=== PATIENT | female | born 2000 | race Caucasian/White ===

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

== ENCOUNTER → 2018-02-27 | Outpatient (CLI) | payer OTHER ==
[2018-02-28 14:17] LABS: INSULIN LEVEL 28.4 uIU/mL (2.6-24.9)
== END ==
LOC: M LAB 08:17
DX: E66.9 Obesity, unspecified (principal)
CPT/HCPCS: 83525

== ENCOUNTER 2018-10-27 11:08 | Emergency (ER) | payer OTHER ==
[~2018-10-27] VITALS: Ht 160 cm; Wt 95.0 kg
[2018-10-27 11:08] VITALS: BP 115/57
--- NOTE | 2018-10-27 12:14 | REP ---
Right knee series: Five views. History: Trauma. Findings: By views of the right knee show mild medial soft tissue swelling on the sunrise view. Bones, joints and soft tissues are unremarkable. Impression: No fracture seen. Electronically Signed by Ventura Dutton MD 10/27/2018 12:05 P
[2018-10-27] MEDS ORDERED: IBUP-1022 PO (13:13)
== END 2018-10-27 13:30 | disposition home or self-care (01) ==
LOC: M ED 11:08
DX: S83.91XA Sprain of unspecified site of right knee, initial encounter (principal); W19.XXXA Unspecified fall, initial encounter; Y92.410 Unspecified street and highway as the place of occurrence of the external cause; Y93.9 Activity, unspecified; Y99.9 Unspecified external cause status; Z72.0 Tobacco use

== ENCOUNTER → 2018-11-26 | Outpatient (CLI) | payer OTHER ==
[~2018-11-26] MED LIST: IBUP-1022 PO
--- NOTE | 2018-11-26 19:50 | REP ---
MRI RIGHT KNEE: TECHNIQUE: Axial proton density fat saturation, sagittal proton density T2 STIR, water excitation, coronal proton density, proton density fat saturation. There is no evidence of a meniscal tear. There is diffuse increased signal on T2 weighted images involving the anterior cruciate ligament consistent with a partial tear. Posterior cruciate ligaments and collateral ligaments are intact. Extensor mechanism is intact. There is bone bruising of the medial femoral condyle predominately anteriorly. The overlying cartilage of the anterior aspect of the medial femoral condyle demonstrates an area of thinning and heterogenous increased signal. This is consistent with osteochondral injury. Mild bone bruising is seen anteriorly in the lateral tibial plateau. There is a small joint effusion. There is a Martinez's cyst in the medial popliteal fossa having maximum cranial caudal dimension of 6.1 cm, AP 2.1 cm and transverse 2.8 cm. IMPRESSION: No meniscal tear. There appears to be a partial tear of the anterior cruciate ligament. Collateral ligaments are intact. Osteochondral injury of the anterior medial femoral condyle with focal area of cartilaginous thinning and abnormal signal, with an underlying bone bruise. There is a mild bone bruise of the anterior lateral tibial plateau. Small joint effusion. Bakers cyst. Electronically Signed by Jorge Escoto MD 11/26/2018 07:54 P
== END ==
LOC: M RAD 17:27
PROVIDERS: ATTEND Physician Assistant Medical
DX: M23.311 Other meniscus derangements, anterior horn of medial meniscus, right knee (principal)

== ENCOUNTER → 2019-07-22 | Outpatient (REF) | payer OTHER ==
[2019-07-22 18:11] LABS: BASO % 0.1 % (0.0-1.0); EOS # 1.2 10^3/uL (0.0-0.5); EOS % 10.6 % (0.0-3.0); HEMATOCRIT 43.1 % (36.0-47.0); HEMOGLOBIN 13.8 g/dl (12.0-15.5); LYMPH % 26.9 % (24.0-44.0); MEAN CORPUSCULAR HEMOGLOBIN 27.2 pg (27.0-33.0); MONO % 8.7 % (0.0-5.0); NEUTROPHILS # 5.9 10^3/uL (1.5-8.5); NEUTROPHILS % 53.2 % (36.0-66.0); PLATELET COUNT, AUTOMATED 542 10^3/uL (150-450); RED BLOOD COUNT 5.07 10^6/uL (4.00-5.40); WHITE BLOOD COUNT 11.1 10^3/uL (4.0-10.0)
[2019-07-22 18:39] LABS: ALBUMIN 3.9 GM/DL (3.2-5.2); ALT/SGPT 19 U/L (12-78); BILIRUBIN,TOTAL 0.3 MG/DL (0.2-1.0); BLOOD UREA NITROGEN 10 MG/DL (7-18); CALCIUM LEVEL 9.4 MG/DL (8.5-10.1); CARBON DIOXIDE LEVEL 30 MEQ/L (21-32); CHLORIDE LEVEL 104 MEQ/L (98-107); CREATININE FOR GFR 0.95 MG/DL (0.55-1.30); FERRITIN 16 NG/ML (8-252); GLUCOSE, FASTING 72 MG/DL (70-100); IRON (FE) 41 UG/DL (50-170); PERCENT SATURATION 10.7 % (13.2-45.0); POTASSIUM SERUM 4.2 MEQ/L (3.5-5.1); SODIUM LEVEL 139 MEQ/L (136-145); TOTAL IRON BINDING CAPACITY 382 UG/DL (250-450); TOTAL PROTEIN 7.5 GM/DL (6.4-8.2)
[2019-07-25 00:08] LABS: H PYLORI SERUM QUANT IGM <9.0 units (0.0-8.9); H PYLORI SERUM QUANT IgG ABY 1.44 (0.00-0.79)
== END ==
LOC: M SFHCPLAZ 15:49
PROVIDERS: ATTEND Physician Assistant Medical
DX: R10.13 Epigastric pain (principal)
CPT/HCPCS: 36415; 80053; 81025; 82728; 83550; 85025; 86677; G0463

== ENCOUNTER → 2019-07-28 | Outpatient (CLI) | payer OTHER ==
--- NOTE | 2019-07-28 08:19 | REP ---
Clinical: Right upper quadrant abdominal pain. Technique: Real time head scale ultrasound examination using curved array transducer. Findings: Liver and visualized pancreas are normal in appearance and echotexture without focal pancreatic or hepatic lesion identified. Gallbladder demonstrates multiple gallstones without wall thickening or pericholecystic fluid. No biliary ductal dilatation is appreciated and the common bile duct measures 5.0 mm diameter. Right kidney is normal in reniform shape without hydronephrosis and measures 9.4 x 5.4 x 4.7 cm. No ascites. Impression: Cholelithiasis. Electronically Signed by Jesse Mcmahan MD 07/28/2019 08:12 A
== END ==
LOC: M RAD 06:20
PROVIDERS: ATTEND Physician Assistant Medical
DX: R10.11 Right upper quadrant pain (principal)

== ENCOUNTER 2019-08-31 10:07 | Day surgery (SDC) | payer OTHER ==
[~2019-08-31] VITALS: Ht 160 cm; Wt 82.1 kg
[~2019-08-31 10:07] MED LIST changes: +FAMO1TAB25 PO; +FAMO40TA3 PO; +LARI1TAB PO; +LEVO250T12 PO; +LIDOCAINE 1% MDV 20ML VIAL SQ PRN; +LR 1,000 ML IV ONE; +ceFAZolin SOD 1 GM in D5W MINI-BAG PLUS 50 ML IV ONE
[2019-08-31] MEDS ORDERED: MIDAZOLAM INJ 2 MG/2 ML VIAL (J2250) As Ordered ONE (10:59)
[2019-08-31] MEDS ORDERED: ONDANSETRON 4MG/2ML VIAL (J2405) As Ordered ONE (10:59)
[2019-08-31] MEDS ORDERED: fentaNYL 100 MCG/2 ML INJECTION (J3010) As Ordered ONE ×3 (10:59→13:48)
[2019-08-31] MEDS ORDERED: dexameTHASONE 4 MG/ML 1ML VIAL (J1100) As Ordered ONE (10:59)
[2019-08-31] MEDS ORDERED: PROPOFOL 200 MG/20 ML VIAL As Ordered ONE (11:00)
[2019-08-31] MEDS ORDERED: LIDOCAINE 2% INJ 100 MG/5 ML SDV (FOR ANES.) As Ordered ONE (11:00)
[2019-08-31] MEDS ORDERED: ROCURONIUM BROMIDE 50 MG/5 ML VIAL As Ordered ONE ×2 (11:00→11:35)
[2019-08-31] MEDS ORDERED: BUPIVACAINE/EPIN 0.25% 30 ML VIAL As Ordered ONE (11:59)
[2019-08-31] MEDS ORDERED: PHENYLephrine HCL 500 MCG/5 ML (100MCG/ML) SYRINGE (J2370) As Ordered ONE (12:42)
[2019-08-31] MEDS ORDERED: SUGAMMADEX SODIUM 500 MG/5 ML VIAL (BRIDION) As Ordered ONE (13:04)
[2019-08-31] MEDS ORDERED: KETOROLAC 60 MG/2 ML VIAL (J1885) As Ordered ONE (13:05)
[2019-08-31] MEDS ORDERED: ePHEDrine SULFATE 25 MG/5 ML(5MG/ML) SYRINGE As Ordered ONE (13:25)
--- NOTE | 2019-08-31 13:39 | RO ---
DATE OF PROCEDURE: 08/31/2019 PREOPERATIVE DIAGNOSIS: Symptomatic gallstones. POSTOPERATIVE DIAGNOSIS: Symptomatic gallstones. PROCEDURE: Laparoscopic cholecystectomy. SURGEON: Ishaan Mann MD DATA ENTRY SUPERVISOR: ANESTHESIA: General endotracheal anesthesia. ESTIMATED BLOOD LOSS: Minimal. FLUIDS: Crystalloid. BRIEF PROCEDURE SUMMARY: The patient was brought to the operating room and was given general anesthesia. After adequate anesthesia and preoperative antibiotics were given, the patient was prepped and draped in the usual sterile fashion. Next, a supraumbilical incision was made with skin knife. Blunt dissection was carried down to fascia. Fascia was entered with Veress needle insufflated to 15 mm pressure. A dilating 10 mm trocar was placed at this time and under direct visualization an epigastric and two trocars were placed. The gallbladder was retracted superiorly. There were numerous adhesions up against gallbladder, which were taken down with hook cautery, and then gallbladder was grasped, retracted superiorly and the neck of the gallbladder cleared of peritoneum using the hook cautery both on the lateral side, then on the medial side where the cystic duct node could be appreciated and the cystic artery was well visualized. This was followed up onto the gallbladder itself and then dissected back down to just below the level of the backside of the wall of the gallbladder. Once this was visualized, then a window was created behind the neck of the gallbladder and a bigger window was created, and then the cystic artery was clipped proximally and distally and transected. Then, the cystic duct was clipped proximally and distally and transected after viewing the critical view of safety. The gallbladder was retracted and taken from the gallbladder bed using electrocautery. It was placed in Endo Catch bag brought out through the umbilicus and the right upper quadrant was copiously irrigated until clear. All trocars were closed with #4-0 Vicryl after the umbilicus was closed with #0 Vicryl in the fascial layer. Steri-Strips and a dry sterile dressing was applied. The patient was awakened, extubated, brought to recovery room awake, alert and hemodynamically stable. Sponge and needle counts correct times two.
[2019-08-31] MEDS ORDERED: ONDANSETRON 4MG/2ML VIAL (J2405) IV PRN ×2 (13:45→14:00)
[2019-08-31] MEDS ORDERED: LR 1,000 ML IV SCH ×2 (13:45→14:00)
[2019-08-31] MEDS ORDERED: NORCO, ANEXSIA 5/325MG TABLET (HYDROcodone/ACETAMINOPHEN) PO PRN (13:45)
[2019-08-31] MEDS ORDERED: PERCOCET 5MG/325MG TAB As Ordered ONE (13:48)
[2019-08-31] MEDS: fentaNYL 100 MCG/2 ML INJECTION (J3010) IV PRN ×4 (13:50→14:05)
[2019-08-31] MEDS: PERCOCET 5MG/325MG TAB PO PRN ×2 (13:50→14:30)
[2019-08-31] MEDS ORDERED: METOCLOPRAMIDE INJ 10MG/2ML VIAL (J2765) IV PRN (14:00)
[2019-08-31] MEDS ORDERED: KETOROLAC 30 MG/ML VIAL (J1885) IV PRN (14:00)
[2019-08-31 17:25] VITALS: BP 116/59
== END 2019-08-31 17:25 | disposition home or self-care (01) ==
LOC: M SDC 10:07
PROVIDERS: ATTEND Surgery
DX: K80.10 Calculus of gallbladder with chronic cholecystitis without obstruction (principal); F32.9 Major depressive disorder, single episode, unspecified; K21.9 Gastro-esophageal reflux disease without esophagitis; R06.83 Snoring; F17.210 Nicotine dependence, cigarettes, uncomplicated; Z79.3 Long term (current) use of hormonal contraceptives
CPT/HCPCS: 47562; 81025; 88304; J0690; J1100; J1885; J2250; J2370; J2405; J3010

== ENCOUNTER → 2019-12-10 | Outpatient (REF) | payer OTHER, SELFPAY ==
[~2019-12-10] MED LIST changes: -LIDOCAINE 1% MDV 20ML VIAL SQ PRN; -LR 1,000 ML IV ONE; -ceFAZolin SOD 1 GM in D5W MINI-BAG PLUS 50 ML IV ONE
== END ==
LOC: EEVIPCON 18:12 → M LAB REF 18:12
PROVIDERS: ATTEND Physician Assistant
DX: L02.511 Cutaneous abscess of right hand (principal)

== ENCOUNTER 2020-11-05 17:33 | Emergency (ER) | payer MEDICAID, SELFPAY ==
[~2020-11-05] VITALS: Ht 160 cm; Wt 87.5 kg
[2020-11-05] MEDS ORDERED: OMEP40CA97 PO (17:51)
[2020-11-05] MEDS ORDERED: BOOSTRIX/ADACEL VACCINE (DIPHTH/PERTUSS/ACELL/TETANUS) 0.5ML SYR IM ONE (18:15)
--- NOTE | 2020-11-05 19:23 | REP ---
INDICATION: bit by dog/index finger dec rom COMPARISON: None. TECHNIQUE: Four views left hand. FINDINGS: There is no evidence of acute fracture, dislocation, or intrinsic bone disease.No radiopaque foreign body is seen. IMPRESSION: No fracture or dislocation. No radiopaque foreign body is seen. <Electronically signed by Jorge Escoto > 11/05/20 [id number]
[2020-11-05] MEDS ORDERED: AUGM875T28 PO (19:28)
[2020-11-05] MEDS ORDERED: AUGMENTIN 875 MG TAB PO ONE (19:30)
[2020-11-05] MEDS ORDERED: NEOSPORIN OINT 0.9 GM PKT TOP ONE (19:45)
[2020-11-05 19:52] VITALS: BP 102/62
== END 2020-11-05 19:53 | disposition home or self-care (01) ==
LOC: M ED 17:33
DX: O9A.212 Injury, poisoning and certain other consequences of external causes complicating pregnancy, second trimester (principal); S61.452A Open bite of left hand, initial encounter; W54.0XXA Bitten by dog, initial encounter; Y92.019 Unspecified place in single-family (private) house as the place of occurrence of the external cause; Y93.9 Activity, unspecified; Y99.9 Unspecified external cause status

== ENCOUNTER → 2020-11-17 | Outpatient (CLI) | payer MEDICAID ==
[~2020-11-17] MED LIST changes: +AUGM875T28 PO; +OMEP40CA97 PO
== END ==
LOC: M WHC 13:39
PROVIDERS: ATTEND Obstetrics & Gynecology
DX: Z34.92 Encounter for supervision of normal pregnancy, unspecified, second trimester (principal); Z3A.22 22 weeks gestation of pregnancy; Z53.9 Procedure and treatment not carried out, unspecified reason

== ENCOUNTER → 2020-11-23 | Outpatient (CLI) | payer MEDICAID ==
--- NOTE | 2020-11-23 17:08 | REP ---
INDICATION: ANATOMY. COMPARISON: None. TECHNIQUE: Real-time sonographic evaluation of the gravid uterus performed. FINDINGS: Estimated gestational age is22 weeks 6 days, EDC 03/23/2021. Presentation: Cephalic Placenta anterior, grade 0, without evidence of placenta previa. heart rate is recorded at 155 beats per minute. Amniotic fluid is subjectively normal. Closed cervical length is measured at 3.8 cm. Biometry chart: BPD: 56 mm, 23 weeks 0 days, 51st percentile. HC: 206 mm, 22 weeks days, 44th percentile AC: 183 mm, 23 weeks 1 days, 54th percentile Femur length: 40 mm, 22 weeks 6 days, 49th percentile HC to AC ratio: 1.13, normal range 1.04-1.23. Estimated weight: 551g, 51st percentile. anatomy: Cranium: Grossly normal Lateral Ventricles/Choroid Plexus: Grossly normal Posterior Fossa/Cerebellum: Grossly normal Nose/lips/profile: Grossly normal Four chamber heart: Grossly normal Right ventricular outflow tract: Grossly normal Left ventricular outflow tract: Grossly normal Left-sided stomach: Grossly normal Kidneys: Grossly normal Bladder: Grossly normal Cord Insertion: Grossly normal 3 vessel cord: Grossly normal Spine: Grossly normal IMPRESSION: Viable single intrauterine gestation as above. <Electronically signed by Jorge Escoto > 11/23/20 [id number]
== END ==
LOC: M WHC 14:03
PROVIDERS: ATTEND Obstetrics & Gynecology
DX: Z3A.22 22 weeks gestation of pregnancy (principal)

== ENCOUNTER → 2021-01-10 | Outpatient (REF) | payer MEDICAID ==
[2021-01-10 15:32] LABS: GLUCOSE CHALLENGE TEST 1 HOUR 122 MG/DL (LESS THAN 140); HEMATOCRIT 41.1 % (36.0-47.0); HEMOGLOBIN 13.9 g/dl (12.0-15.5); MEAN CORPUSCULAR HEMOGLOBIN 30.6 pg (27.0-33.0); MEAN CORPUSCULAR HGB CONC 33.8 g/dl (32.0-36.5); MEAN CORPUSCULAR VOLUME 90.5 fl (80.0-96.0); PLATELET COUNT, AUTOMATED 408 10^3/uL (150-450); RED BLOOD COUNT 4.54 10^6/uL (4.00-5.40); WHITE BLOOD COUNT 16.5 10^3/uL (4.0-10.0)
[2021-01-10 16:26] LABS: HEPATITIS C VIRUS ABY INDEX < 0.0 INDEX (<0.8)
[2021-01-10 16:27] LABS: HIV 1&2 SCREEN CENTAUR NEGATIVE (NEGATIVE)
[2021-01-10 17:12] LABS: CHLAMYDIA DNA AMPLIFICATION NEGATIVE (NEGATIVE); GC DNA AMPLIFICATION NEGATIVE (NEGATIVE)
== END ==
LOC: M PLALAB 11:17
PROVIDERS: ATTEND Obstetrics & Gynecology
DX: Z34.90 Encounter for supervision of normal pregnancy, unspecified, unspecified trimester (principal); Z3A.00 Weeks of gestation of pregnancy not specified

== ENCOUNTER → 2021-01-27 | Outpatient (REF) | payer MEDICAID, OTHER | LOC: M SFHCWAGY 12:50 | PROVIDERS: ATTEND Advanced Practice Midwife | DX: O99.333 Smoking (tobacco) complicating pregnancy, third trimester (principal); Z3A.00 Weeks of gestation of pregnancy not specified; F17.200 Nicotine dependence, unspecified, uncomplicated ==

== ENCOUNTER → 2021-02-20 | Outpatient (REF) | payer MEDICAID, OTHER | LOC: M SFHCWAGY 14:45 | PROVIDERS: ATTEND Advanced Practice Midwife | DX: Z34.03 Encounter for supervision of normal first pregnancy, third trimester (principal); Z3A.00 Weeks of gestation of pregnancy not specified ==

== ENCOUNTER 2021-03-04 08:20 | Inpatient (IN) | payer OTHER, MEDICAID ==
[2021-03-04] VITALS (32 sets, daily range): BP systolic 81–129; BP diastolic 47–77
[~2021-03-04] VITALS: Ht 160 cm; Wt 95.1 kg
[2021-03-04] MEDS ORDERED: PRENTAB9 PO (08:56)
[2021-03-04] MEDS ORDERED: BUTORPHANOL 2 MG/ML INJ (J0595) IV ONE (10:20)
[2021-03-04] MEDS ORDERED: PROMETHAZINE INJ 25 MG/ML VIAL (J2550) IV PRN ×2 (10:20→11:25)
[2021-03-04] MEDS ORDERED: LR 1,000 ML IV SCH ×2 (10:20→17:25)
[2021-03-04 10:42] LABS: HEMATOCRIT 38.6 % (36.0-47.0); HEMOGLOBIN 13.5 g/dl (12.0-15.5); MEAN CORPUSCULAR HEMOGLOBIN 30.4 pg (27.0-33.0); MEAN CORPUSCULAR VOLUME 86.9 fl (80.0-96.0); PLATELET COUNT, AUTOMATED 351 10^3/uL (150-450); RED BLOOD COUNT 4.44 10^6/uL (4.00-5.40); WHITE BLOOD COUNT 20.7 10^3/uL (4.0-10.0)
--- NOTE | 2021-03-04 11:52 | HPEPDOC ---
Obstetrical History & Physical General Date of Admission Mar 04, 2021 at 10:17 History of Present Illness 20-year-old 1 at 37 weeks 3 days estimated gestational age presents with complaints of fluid. She also complaints of decreased movement and contractions. course is remarkable for transferred here at 22 weeks. Appointments have been appropriate since. 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 BREAST: . ABDOMEN: Gravid and non-tender to touch. FETUS: Is vertex (VTX) by sterile vaginal examination (SVE), fetus is vertex (VTX) by James. HEART RATE: Regular rate and rhythm. LUNGS: Clear to auscultation (CTA). Vital Signs/I&O Vital Signs Date Time Temp Pulse Resp B/P (MAP) Pulse Ox O2 Delivery O2 Flow Rate FiO2 03/04/21 11:32 16 03/04/21 10:11 68 114/63 (80) 03/04/21 08:38 97.3 Laboratory Data 24H LABS Laboratory Tests 2 03/04/21 10:23: Nucleated Red Blood Cells % (auto) 0.0 03/04/21 10:26: Serology Scanned Report Hepatitis B Testing CBC/BMP Laboratory Tests 03/04/21 10:23 Pertinent Laboratoy Data Blood Type: O+ RBC Antibody Screen: Negative HIV: Negative Hepatitis B: Negative Hepatitis C: Negative Rapid Plasma Reagin: Nonreactive Rubella: Immune Chlamydia/Gonorrhea: Negative Group B Streptococcus: Negative Anatomy Ultrasound Placenta Location: Anterior Normal Anatomy: Yes Placenta Previa: No Vaginal Examination Dilation: 2cm (SSE: postive pooling, ferning and nitrzine) Effacement: 50% Station: -3 Cervical Consistency: Medium Cervical Position: Middle Presentation: Cephalic presentation Assessment Variability: Moderate Accelerations: Positive Tocometer Contractions: Yes Assessment/Plan Assessment 18-year-old 1 at 7 and 3 with spontaneous rupture of membranes 3 AM this morning Reassuring status Plan Admit 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 Diet: Regular. Group B Streptococcus (GBS) negative. Labs and intravenous (IV) per unit protocol. Counseled on Pitocin and induction of labor (IOL). Anticipate normal spontaneous delivery (). C-S as appropriate. JAYLAN MOISE MD. Mar 04, 2021 11:52
[2021-03-04] MEDS ORDERED: EPIDURAL/PCA KEYS XX PRN (14:00)
[2021-03-04] MEDS ORDERED: EPIDURAL COMMENT XX SCH (14:00)
[2021-03-04] MEDS ORDERED: FENTANYL/ROPIVACAINE/NACL BAG 100 ML EPIDURAL SCH (14:00)
[2021-03-04] MEDS ORDERED: REFRIGERATOR IV KEYS XX PRN (14:00)
[2021-03-04] MEDS ORDERED: ONDANSETRON 4MG/2ML VIAL IV PRN ×2 (14:00→17:25)
[2021-03-04] MEDS ORDERED: diphenhydrAMINE 50MG/ML VIAL (J1200) IV PRN (14:00)
[2021-03-04] MEDS ORDERED: NALOXONE INJ 0.4MG/1ML VIAL (J2310 PER 1MG) IV PRN (14:00)
[2021-03-04] MEDS ORDERED: LACTATED RINGER'S 1000 ML IV PRN (14:00)
[2021-03-04] MEDS ORDERED: FENTANYL 2MCG/ML ROPIVACAINE 0.2% IN 0.9% NACL 100ML IVBAG As Ordered ONE (14:04)
[2021-03-04] MEDS: ePHEDrine SULFATE 25 MG/5 ML(5MG/ML) SYRINGE IV PRN ×4 (15:00→16:22)
[2021-03-04] MEDS ORDERED: MOM 30ML SUSPENSION UDC PO PRN ×2 (17:25→21:30)
[2021-03-04] MEDS ORDERED: PERCOCET 5MG/325MG TAB PO PRN ×2 (17:25)
[2021-03-04] MEDS ORDERED: KETOROLAC 30 MG/ML 1ML VIAL IV SCH (17:25)
[2021-03-04] MEDS ORDERED: SIMETHICONE 80MG CHEW TAB PO PRN (17:25)
[2021-03-04] MEDS ORDERED: MEASLES,MUMPS,RUBELLA VACCINE INJ (MMR-II) (90707) SC SCH ×2 (17:25→21:30)
[2021-03-04] MEDS ORDERED: RHOGAM 300 MCG (1500 IU) INJ (J2790) IM SCH ×2 (17:25→21:30)
[2021-03-04] MEDS ORDERED: OXYTOCIN DRIP 30 UNITS in IV 1 EA IV SCH ×2 (17:25→21:30)
--- NOTE | 2021-03-04 17:27 | ROOPDOC ---
[facility] Report Of Operation Report of Operation DATE OF PROCEDURE: 03/04/21 SURGEON: Kateryna Jimenez M.D. MANAGER TRANSITION: Victor Hugo Rodriguez M.D. ( essential for tissue retractions, exposure and delivery of ) PROCEDURE: Primary section PREOPERATIVE DIAGNOSIS: 1.Arrest of dilation POSTOPERATIVE DIAGNOSIS: 1.Arrest of dilation ANESTHESIA: Epidural ESTIMATED BLOOD LOSS: 600 mL URINE OUTPUT: 200 mL INTRAVENOUS FLUIDS: 700 mL of lactated Ringer's solution PREOPERATIVE ANTIBIOTICS:. 2 g of Ancef and 500 azithromycin OPERATIVE FINDINGS: Liveborn male infant, Apgars 9 and 9. Weight 3100 g 6 lbs. 14 oz. SPECIMENS: None DESCRIPTION OF PROCEDURE: After informed consent was obtained and written consent was reviewed. The patient was brought to the operating room. She was then placed in the supine position with a left lateral tilt. Do catheter was placed and to gravity. Patient was then prepped and draped in the normal sterile fashion. A timeout operating room was performed identifying the patient, procedure be performed as well as drug allergies. Anesthesia was tested and deemed to be adequate. Pfannenstiel skin incision was made and this was carried down to the underlying rectus fascia. The fascia was then scored and this incision was extended bilaterally. The fascia was then dissected off the underlying rectus muscle superiorly and inferiorly. The rectus muscles were then in the midline. The peritoneum is then entered. Vesicouterine peritoneum was then tented and excised and a bladder flap was created. Mobius retractor was then placed. Next, a curvilinear incision was then made in the lower uterine segment. The head was brought to the level of the incision atraumatically and delivered along the shoulders and corpus. The cord was clamped x2. The infant was brought over to the warmer with a good cry. Placenta was drained and delivered grossly intact. The uterus was cleared of all clots and debris and the uterine incision was then closed using 0 Vicryl in a running locking fashion followed by a second layer of 0 Vicryl in a running nonlocking fashion for imbrication. The abdomen suctioned. Surgical sites reinspected and noted be hemostatic. The retractor was then removed. The anterior peritoneum was then reapproximated with 3-0 Vicryl. The rectus muscles were reapproximated 3-0 Vicryl. The fascia was then closed using 0 Vicryl in a running nonlocking fashion. The subcutaneous tissues was then irrigated and suctioned. Subcutaneous tissue was reapproximated using 3-0 Vicryl. Several subdermal stitch is placed using 3-0 Vicryl and the skin was closed with 4-0 Monocryl and subcuticular fashion. This incision was then cleaned and dried and was dressed. The patient was then taken to recovery in stable condition. All counts were correct. . My surgical instrument mechanic Dr. Rodriguez played in an essential role during the operation. He assisted with tissue identification retraction, delivery of the , as well as wound closure. KATERYNA JIMENEZ MD. Mar 04, 2021 17:27
[2021-03-04] MEDS ORDERED: DOCUSATE SODIUM 100MG CAPSULE PO SCH (21:00)
[2021-03-04 21:10] LABS: CORD GAS ABE V -16.6; CORD GAS HCO3 V 16.4 MEQ/L; CORD GAS O2 SAT V 28.4 %; CORD GAS PCO2 V 70.6 mmHg; CORD GAS PO2 V 19.4 mmHg; CORD GAS SBC V 11.2 MEQ/L; CORD GAS TCO2 V 18.6 MEQ/L
[2021-03-04 21:11] LABS: CORD GAS ABE A -15.5; CORD GAS HCO3 A 20.3 MEQ/L; CORD GAS O2 SAT A 18.8 %; CORD GAS PCO2 A 104.2 mmHg; CORD GAS PO2 A 16.5 mmHg; CORD GAS SBC A 11.6 MEQ/L; CORD GAS TCO2 A 23.5 MEQ/L
[2021-03-04 21:12] LABS: CORD GAS PH A 6.907 UNITS
[2021-03-04 21:14] LABS: CORD GAS PH V 6.984 UNITS
--- NOTE | 2021-03-04 21:28 | DNPDOC ---
[facility] Delivery Note Delivery Note DATE OF DELIVERY: 03/04/2021 TIME OF : 2050 GENDER: Male. APGARS: 2, 2, 7 WEIGHT: 2120 g LACERATIONS: 2MLL ANESTHESIA: epidural ESTIMATED BLOOD LOSS: 300ml COUNTS: 5 laparotomy sponges accounted for prior to after delivery. 3 sharps removed from delivery field. Cord gases 6.907, 6.984 and base excess is -15.5-16.6 DELIVERY NOTE: On on 03/04/2021 with Colin a 20-year-old 1 now para 1 had a spontaneous vaginal delivery of a liveborn male infant Apgars 2, 2 and 7. Head was delivered occiput anterior (OA). There was a tight triple nuchal cord followed by delivery of the shoulders and corpus. Cord was clamped times two and was cut by support person under my direction. was taken quickly over warmer for resuscitation. Placenta was then drained and delivered grossly intact. A premixed bag of 500 mL of normal saline with 30 units of Pitocin was then bolused along with uterine massage until the uterus was firm. On inspection there was a 2MLL that was repaired with 3-0 Vicryl. On reinspection, cervix, vagina, perineum was grossly intact and hemostatic. Mom and baby in recovery on stable condition. JAYLAN MOISE MD. Mar 04, 2021 21:28
[2021-03-04] MEDS ORDERED: ANUSOL HC CREAM 30GM TOP PRN (21:30)
[2021-03-04] MEDS ORDERED: DIBUCAINE 1% OINTMENT 30GM TOP PRN (21:30)
[2021-03-04] MEDS ORDERED: ACETAMINOPHEN 500 MG TAB PO PRN (21:30)
[2021-03-04] MEDS ORDERED: ACETAMINOPHEN TAB 650MG DOSE (2X325MG) PO PRN (21:30)
[2021-03-04] MEDS ORDERED: METHYLERGONOVINE MALEATE 0.2 MG TAB PO PRN (21:30)
[2021-03-04] MEDS ORDERED: IBUPROFEN 800 MG TAB PO PRN (21:30)
[2021-03-04] MEDS ORDERED: DOCUSATE SODIUM 100MG CAPSULE PO PRN (21:30)
[2021-03-04] MEDS ORDERED: IBUPROFEN 600MG TAB PO PRN (21:30)
[2021-03-05 06:00] VITALS: BP 109/56
[2021-03-05] MEDS: PRENATAL VITAMINS CHEWABLE TABLET PO SCH (08:14)
[2021-03-05] MEDS ORDERED: PRENATAL VITAMINS CHEWABLE TABLET PO SCH (09:00)
--- NOTE | 2021-03-05 13:37 | IPNPDOC ---
Progress Note Date of Service: Mar 05, 2021 Day#: 1 Progress Note SUBJECT: Doing well without complaints. Ambulating, voiding and pain is well-co ntrolled. Reports minimal lochia. OBJECTIVE: VITAL SIGNS: Within normal limits, afebrile. Alert and oriented times three. Abdomen: Fundus firm at U-2. Soft, NTTP. Ext: neg calf tenderness. ASSESSMENT: day #1 status post . Recovering in stable condition. PLAN: 1. Continue routine care 2. Discharge plans for tomorrow VS, I&O, 24H, Fishbone Vital Signs/I&O Vital Signs Date Time Temp Pulse Resp B/P (MAP) Pulse Ox O2 Delivery O2 Flow Rate FiO2 03/05/21 06:00 97.3 64 14 109/56 (73) 03/04/21 23:00 99 Room Air I&O- Last 24 Hours up to 6 AM 03/05/21 06:00 Intake Total 678 ml Output Total 1250 ml Balance -572 ml Laboratory Data 24H LABS Laboratory Tests 2 03/04/21 20:58: Cord Arterial Blood pH 6.907*L, Cord Arterial Blood PCO2 104.2, Cord Arterial Blood PO2 16.5, Cord Arterial Blood HCO3 20.3, Cord Arterial Blood Total CO2 23.5, Cord Arterial Blood Base Excess -15.5, Cord Arterial Base Excess (Standard 11.6, Cord Arterial Bld Oxygen Saturation 18.8, Cord Venous Blood pH 6.984*L, Cord Venous Blood PCO2 70.6, Cord Venous Blood PO2 19.4, Cord Venous Blood HCO3 16.4, Cord Venous Blood Total CO2 18.6, Cord Venous Base Excess (Actual) -16.6, Cord Venous Base Excess (Standard) 11.2, Cord Venous Blood Oxygen Saturation 28.4 JAYLAN MOISE MD. Mar 05, 2021 13:37
[2021-03-05 18:03] VITALS: BP 125/59
[2021-03-05] MEDS ORDERED: IBUPROFEN 800 MG TAB PO SCH (19:25)
[2021-03-06 06:00] VITALS: BP 123/57
[2021-03-06] MEDS: PRENATAL VITAMINS CHEWABLE TABLET PO SCH (09:57)
[2021-03-06] MEDS ORDERED: ACET-683 PO (12:06)
== END 2021-03-06 14:30 | disposition home or self-care (01) | DRG 560 ==
LOC: M LDO 08:20 → M LDI 10:17 → M OBS 23:08
PROVIDERS: ADMIT Obstetrics & Gynecology; ATTEND Obstetrics & Gynecology
PROC: 10E0XZZ Delivery of Products of Conception, External Approach (ICD-10-PCS; principal; 2021-03-04)
PROC: 0KQM0ZZ Repair Perineum Muscle, Open Approach (ICD-10-PCS; 2021-03-04)
DX: O99.334 Smoking (tobacco) complicating childbirth (principal); F17.210 Nicotine dependence, cigarettes, uncomplicated; Z37.0 Single live birth; Z3A.37 37 weeks gestation of pregnancy; O32.4XX0 Maternal care for high head at term, not applicable or unspecified; O69.1XX0 Labor and delivery complicated by cord around neck, with compression, not applicable or unspecified; O70.1 Second degree perineal laceration during delivery

== ENCOUNTER 2021-09-11 14:34 | Emergency (ER) | payer OTHER, MEDICAID ==
[~2021-09-11] VITALS: Ht 160 cm; Wt 97.4 kg
[~2021-09-11 14:34] MED LIST changes: +ACET-683 PO; +FAMO10TA50 PO; -FAMO1TAB25 PO; +OMEP40CA4 PO; -OMEP40CA97 PO; +PRENTAB9 PO
--- OUTSIDE RECORDS SUMMARY | 2021-09-11 14:43 | CCD ---
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 (applies to non-numer ic results) [facility] Provider State Normal (applies to non-nume saul results) [facility] Provider Zip [id number] Normal (applies to non-numeri c results) [facility] Provider Phone Normal (applies to non-nume saul results) [facility] Submitting Lab Phone Normal (applies to no n-numeric results) [facility] Test Performed by: [facility] [address] [place] [address] Houseman: Amado Braun M.D. Ph.D.; CLIA# [id number] ID Date Data Source [id number] 09/17/2020 10:41:00 AM EST [facility] Name Value Range Interpretation Code Description Data Amy rce(s) Supporting Document(s) Urine Culture Normal (applies to non-numeric re sults) [facility] ID Date Data Source [id number] 09/16/2020 02:36:00 PM EST [facility] Value Range Interpretation Code Description Data Amy rce(s) Supporting Document(s) Hep C Ab-T Test Nonreactive Normal (applies to non-numeric results) [facility] ID Date Data Source [id number] 09/16/2020 02:36:00 PM EST [facility] Value Range Interpretation Code Description Data Amy rce(s) Supporting Document(s) Hep Bs Ag Result T-Test Nonreactive Normal (applies to non -numeric results) [facility] ID Date Data Source [id number] 09/16/2020 02:36:00 PM EST [facility] Value Range Interpretation Code Description Data Amy rce(s) Supporting Document(s) HIV 1/2 Ab p24 Ag Screen Nonreactive Normal (applies to non-numeric results) [facility] ID Date Data Source [id number] 09/16/2020 02:36:00 PM EST [facility] Value Range Interpretation Code Description Data Amy rce(s) Supporting Document(s) Rubella Ab,IgG >10.0 Normal (applies to non-numeric r esults) [facility] Interpretation of Result s Less than 5.0 IU/mL - Negative for IgG antibodies to Rubella virus 5.0 - 9.9 IU/mL - Equivocal. Suggest repeat testing on new sample 10.0 IU/mL or greater - Positive for IgG antibodies to Rubella virus ID Date Data Source [id number] 09/16/2020 02:36:00 PM [facility] Name Value Range Interpretation Code Description Data Amy rce(s) Supporting Document(s) Syphilis Serology Nonreactive Normal (applies to non-numer ic results) [facility] ID Date Data Source [id number] 09/16/2020 02:34:00 PM [facility] Value Range Interpretation Code Description Data Amy rce(s) Supporting Document(s) BLOOD TYPE PATIENT O Positive Normal (applies to non-numer ic results) [facility] ANTIBODY SCREEN NEGATIVE Normal (applies to non-numeric results) [facility] ID Date Data Source [id number] 09/16/2020 01:17:00 PM [facility] Value Range Interpretation Code Description Data Amy rce(s) Supporting Document(s) Thyroid Stimulate Hormone TSH 0.358-3.740 No rmal (applies to non-numeric results) [facility] ID Date Data Source [id number] 09/16/2020 01:11:00 PM [facility] Value Range Interpretation Code Description Data Amy rce(s) Supporting Document(s) Bupren Scrn,Ur wRfx LCI SO res Negative N ormal (applies to non-numeric results) [facility] Therapeutic Drug Threshold for Buprenorp yaneli: 5 ng/mL All positive findings are presumptive and unconfirmed. Confirmation of positive Buprenorphine is automatically reflexed and sent to reference laboratory. Unconfirmed results must not be used for non-medical purposes (i.e. pre-employment and legal purposes) ID Date Data Source [id number] 09/16/2020 12:43:00 PM [facility] Value Range Interpretation Code Description Data Amy rce(s) Supporting Document(s) White Blood Count 4.8-10.8 Above high normal [facility] Red Blood Count 3.68-5.22 Normal (applies to non-numeric results) [facility] Hemoglobin 11.2-15.7 Normal (applies to non-numeric resul ts) [facility] Hematocrit 34.1-44.9 Normal (applies to non-numeric resul ts) [facility] Mean Corpuscular Volume 81-99 Normal (applies to non- numeric results) [facility] Mean Corpuscular Hemoglobin 27.0-33.0 Normal (appli es to non-numeric results) [facility] Mean Corpuscular HGB Conc 32.0-36.0 Normal (applies to no n-numeric results) [facility] Red Cell Distribution Width 11.5-14.5 Normal (appli es to non-numeric results) [facility] Platelet Count 468 X10 3/uL 130-450 Above high normal [facility] Mean Platelet Volume 9.5-12.7 Normal (applies to non-num david results) [facility] Imm Grans% (AUTO) 0 % 0-2 Normal (applies to non-numeri c results) [facility] Neutrophils % (AUTO) 60 % 40-75 Normal (applies to non-num david results) [facility] Lymphocytes % (AUTO) 28 % 21-46 Normal (applies to non-num david results) [facility] Monocytes % (AUTO) 8 % 5-12 Normal (applies to non-numer ic results) [facility] Eosinophils % (AUTO) 3 % 1-5 Normal (applies to non-num david results) [facility] Basophils % (AUTO) 1 % 0-1 Normal (applies to non-numer ic results) [facility] Imm Grans# (AUTO) 0.0-0.5 Normal (applies to non-numeri c results) [facility] Neutrophils # (AUTO) 1.5-8.1 Normal (applies to non-num david results) [facility] Lymphocytes # (AUTO) 1.0-3.1 Above high normal [facility] Monocytes # (AUTO) 0.2-1.3 Normal (applies to non-numer ic results) [facility] Eosinophils# (AUTO) 0.0-0.5 Normal (applies to non-nume saul results) [facility] Basophils # (AUTO) 0.0-0.1 Normal (applies to non-numer ic results) [facility] ID Date Data Source [id number] 09/16/2020 10:57:00 AM EST [facility] Hospital Name: TRUONG CARDONA : 8 Age/Sex: 20F Ordering Provider: Juancarlos Lacy MD Med Rec #: [id number] Reg Status: REG REF Room #: Date of Service: 09/16/20 Report Number: [id number] cc:Juancarlos Lacy MD Send Report To: [id number] US/US Nuchal Translucency Measure Reason for exam: 12 WEEKS GESTATION FINDINGS: Earliest U/S Today = EDC 03-25-21 EGA = 12 wks 6 days Gestation: Single. [place] Rump Length: 64 mm = 12w 6d EDC: 03-25-21 Heart Rate: 152 bpm. Placental Location: Anterior. No previa. Presentation: Undetermined. Regular Shaped Gestational Sac: Yes Adequate Amniotic Fluid: Yes Yolk Sac: Yes Cervical length: 32 mm Nuchal translucency: 1.4 mm. Right ovary measures 2.4 x 1.1 x 1.9 cm. Left ovary measures 2.3 x 2.0 x 2.3 cm. IMPRESSION: Normal nuchal translucency at 1.4 mm. REPORT DICTATED BY ALBERTO WALTERS, REVIEWED AND SIGNED BY DR. DAVIS. REPORT SIGNATURE ON FILE Reported By: Alberto Davis MD <Electronically signed by Natividad Davis MD> 09/16/20 1306 Dictation Date/Time: 09/16/20 1012 Transcribed Date/Time: 09/16/20 1057 Online Trader: [email or web address] Name Value Range Interpretation Code Description Data Amy rce(s) Supporting Document(s) ID Date Data Source [id number] 08/22/2020 10:47:[address] [facility] Imaging Services Department Imaging Report [address], [place] [address] %(RAD)RES..[email or web address].filter("line") Name: TRUONG CARDONA : 2000 Age/Sex: 19F Ordering Provider: Juancarlos Lacy MD Med Rec #: [id number] Reg Status: DEP REF Room #: Date of Service: 08/18/20 Report Number: [id number] cc:Juancarlos Lacy MD; PCP None Send Report To: [id number] US/US Transvaginal OB Reason for exam: DATING,VIABILITY FINDINGS: LMP: 06-15-20 = EDC 03-22-21 EGA = 9 wks 1 day Earliest U/S Today = EDC 03-19-21 EGA= 9 wks 4 days Gestation: Single. Gestational sac size: 38.5 x 17.0 x 49.5 mm = 35.0 mm AVw 5d. [place] Rump Length: 27.6 mm = 9w 4d EDC: 03-19-21 Heart Rate: 177 bpm. Placental Location: Undetermined. Presentation: Undetermined. Regular Shaped Gestational Sac: Yes Adequate Amniotic Fluid: Yes Yolk Sac: Yes Cervical length: 37.1 mm. Right ovary measures 3.8 cm x 1.6 cm x 3.6 cm. Left ovary measures 3.6 cm x 1.8 x cm x 3.6 cm. The ovaries appear unremarkable. Normal arterial blood flow is demonstrated at bilateral ovaries without torsion. IMPRESSION: Live, single, intrauterine gestation. Sonographic EGA of 9w 4d. No areas of hemorrhage identified. REPORT SIGNATURE ON FILE Reported By: Justus Vazquez MD <Electronically signed by Justus Vazquez MD> 08/23/20 1155 Dictation Date/Time: 08/18/20 1349 Transcribed Date/Time: 08/22/20 1047 Online Trader: [email or web address] Name Value Range Interpretation Code Description Data Amy rce(s) Supporting Document(s) ID Date Data Source [id number] 09/12/2020 05:08:00 PM [facility] CHLAMYDIA/GC SOURCE: ENDOCERVICAL Name Value Range Interpretation Code Description Data Amy rce(s) Supporting Document(s) Chlam Amp Probe-Swab Negative Normal (applies to non-num david results) [facility] GC Amp Probe- Swab Negative Normal (applies to non-numer ic results) [facility] Methodology: Second generation nucleic a kathrin amplification. ID Date Data Source [id number] 09/12/2020 12:05:00 PM [facility] Name Value Range Interpretation Code Description Data Amy rce(s) Supporting Document(s) Procedure Social History Code Duration Value Status Description Data Source(s ) Smoking 04/12/2021 12:00:00 AM EDT Current Smoker completed Curre nt Smoker [facility] Smoking 02/24/2021 12:00:00 AM EDT Current Smoker completed Curre nt Smoker eCW1 ([facility]) Smoking 02/24/2021 12:00:00 AM EDT Current Smoker completed Curre nt Smoker eCW1 ([facility]) Smoking 02/20/2021 12:00:00 AM EDT Current Smoker completed Curre nt Smoker eCW1 ([facility]) Smoking 02/20/2021 12:00:00 AM EDT Current Smoker completed Curre nt Smoker eCW1 ([facility]) Smoking 02/16/2021 12:00:00 AM EDT Current Smoker completed Curre nt Smoker eCW1 ([facility]) Smoking 01/13/2021 12:00:00 AM EDT Current Smoker completed Curre nt Smoker eCW1 ([facility]) Smoking 12/16/2020 12:00:00 AM EDT Current Smoker completed Curre nt Smoker eCW1 ([facility]) Smoking 11/17/2020 12:00:00 AM EST Current Smoker completed Curre nt Smoker eCW1 ([facility]) Vital Signs ID Date Data Source UNK Name Value Range Interpretation Code Description Data Source(s) Body weight 199.2 [lb_av] 199.2 [lb_av] eCW1 ([facility]) Body mass index (BMI) [Ratio] 35 kg/m2 35 kg/ m2 e[facility]) Systolic blood pressure 116 mm[Hg] 116 mm[Hg] e CW1 ([facility]) Body height 63.25 [in_i] 63.25 [in_i] eCW1 ([facility]) Diastolic blood pressure 70 mm[Hg] 70 mm[Hg] eCW1 [facility]) Body weight 212 [lb_av] 212 [lb_av] eCW1 ([facility]) Body weight 96.16 kg 96.16 kg eCW1 ([facility]) Body height 63.25 [in_i] 63.25 [in_i] eCW1 ([facility]) Body mass index (BMI) [Ratio] 37.258 kg/m2 37.2 58 kg/m2 eCW1 [facility]) Systolic blood pressure 118 mm[Hg] 118 mm[Hg] e CW1 ([facility]) Diastolic blood pressure 64 mm[Hg] 64 mm[Hg] eCW1 ([facility]) Body weight 213.8 [lb_av] 213.8 [lb_av] eCW1 ([facility]) Body weight 96.98 kg 96.98 kg eCW1 ([facility]) Body height 63.25 [in_i] 63.25 [in_i] eCW1 ([facility]) Body mass index (BMI) [Ratio] 37.574 kg/m2 37.5 74 kg/m2 eCW1 ([facility]) Systolic blood pressure 114 mm[Hg] 114 mm[Hg] e CW1 ([facility]) Diastolic blood pressure 70 mm[Hg] 70 mm[Hg] eCW1 ([facility]) Body weight 210.9 [lb_av] 210.9 [lb_av] eCW1 ([facility]) Body height 63.25 [in_i] 63.25 [in_i] eCW1 ([facility]) Body mass index (BMI) [Ratio] 37.065 kg/m2 37.0 65 kg/m2 eCW1 ([facility]) Systolic blood pressure 114 mm[Hg] 114 mm[Hg] e CW1 ([facility]) Diastolic blood pressure 78 mm[Hg] 78 mm[Hg] eCW1 ([facility]) Body weight 95.62 kg 95.62 kg eCW1 ([facility]) Body height 63.25 [in_i] 63.25 [in_i] eCW1 ([facility]) Body mass index (BMI) [Ratio] 37.047 kg/m2 37.0 47 kg/m2 eCW1 ([facility]) Systolic blood pressure 110 mm[Hg] 110 mm[Hg] e CW1 ([facility]) Diastolic blood pressure 78 mm[Hg] 78 mm[Hg] eCW1 ([facility]) Body weight 210.8 [lb_av] 210.8 [lb_av] eCW1 ([facility]) Body weight 206 [lb_av] 206 [lb_av] eCW1 ([facility]) Body height 63.25 [in_i] 63.25 [in_i] eCW1 ([facility]) Body mass index (BMI) [Ratio] 36.203 kg/m2 36.2 03 kg/m2 eCW1 ([facility]) Systolic blood pressure 112 mm[Hg] 112 mm[Hg] e CW1 ([facility]) Diastolic blood pressure 68 mm[Hg] 68 mm[Hg] eCW1 ([facility]) Body weight 195 [lb_av] 195 [lb_av] eCW1 ([facility]) Body height 63.25 [in_i] 63.25 [in_i] eCW1 ([facility]) Body mass index (BMI) [Ratio] 34.27 kg/m2 34.27 kg/m2 eCW1 ([facility]) Systolic blood pressure 102 mm[Hg] 102 mm[Hg] e CW1 ([facility]) Diastolic blood pressure 66 mm[Hg] 66 mm[Hg] eCW1 ([facility]) Body weight 191 [lb_av] 191 [lb_av] eCW1 ([facility]) Body height 63.25 [in_i] 63.25 [in_i] eCW1 ([facility]) Body mass index (BMI) [Ratio] 33.567 kg/m2 33.5 67 kg/m2 eCW1 [facility]) Systolic blood pressure 104 mm[Hg] 104 mm[Hg] e CW1 ([facility]) Diastolic blood pressure 68 mm[Hg] 68 mm[Hg] eCW1 [facility]) Patient Treatment Plan of Care Planned Activity Planned Date Details Description Data Source (s) Sertraline 50 MG Oral Tablet 04/12/2021 12:00:00 AM EDT eCW1 ([facility]) Famotidine 40 MG Oral Tablet [Pepcid] 02/20/2021 12:00:00 AM EDT eCW1 ([facility]) Famotidine 40 MG Oral Tablet [Pepcid] 02/20/2021 12:00:00 AM EDT eCW1 ([facility])
[2021-09-11 17:26] LABS: BLOOD UREA NITROGEN 6 MG/DL (7-18); CALCIUM LEVEL 9.4 MG/DL (8.5-10.1); CARBON DIOXIDE LEVEL 23 MEQ/L (21-32); CHLORIDE LEVEL 106 MEQ/L (98-107); CREATININE FOR GFR 0.78 MG/DL (0.55-1.30); GLOMERULAR FILTRATION RATE > 60.0 (>60); GLUCOSE, FASTING 91 MG/DL (70-100); POTASSIUM SERUM 4.2 MEQ/L (3.5-5.1); SODIUM LEVEL 137 MEQ/L (136-145)
[2021-09-11 17:27] LABS: HEMATOCRIT 40.4 % (36.0-47.0); HEMOGLOBIN 13.2 g/dl (12.0-15.5); MEAN CORPUSCULAR HEMOGLOBIN 25.9 pg (27.0-33.0); MEAN CORPUSCULAR HGB CONC 32.7 g/dl (32.0-36.5); MEAN CORPUSCULAR VOLUME 79.4 fl (80.0-96.0); PLATELET COUNT, AUTOMATED 552 10^3/uL (150-450); RED BLOOD COUNT 5.09 10^6/uL (4.00-5.40); WHITE BLOOD COUNT 19.7 10^3/uL (4.0-10.0)
[2021-09-11] MEDS ORDERED: KETOROLAC 30 MG/ML 1ML VIAL IV ONE (18:20)
[2021-09-11] MEDS ORDERED: NS 1,000 ML IV ONE (18:20)
[2021-09-11] MEDS ORDERED: cefTRIAXone SOD 1 GM in D5W MINI-BAG PLUS 50 ML IV ONE (18:20)
[2021-09-11] MEDS ORDERED: ONDANSETRON 4MG/2ML VIAL IV ONE (18:20)
[2021-09-11 19:02] LABS: HCG, SERUM QUALITATIVE NEGATIVE (NEGATIVE)
--- OUTSIDE RECORDS SUMMARY | 2021-09-11 19:36 | CCD ---
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 Amy rce(s) Supporting Document(s) ID Date Data Source [id number] 08/22/2020 10:47:00 AM [facility] Imaging Services Department Imaging Report [address] [address] %(RAD)RES..mtdd.print.filter("line") Name: TRUONG CARDONA : 2000 Age/Sex: 19F Ordering Provider: Juancarlos Lacy MD Med Rec #: [id number] Reg Status: DEP REF Room #: Date of Service: 08/18/20 Report Number: [id number] cc:Juancarlos Lacy MD; PCP None Send Report To: [id number] US/US Transvaginal OB Reason for exam: DATING,VIABILITY FINDINGS: LMP: 06-15-20 = EDC 03-22-21 EGA = 9 wks 1 day Earliest U/S Today = EDC 03-19-21 EGA= 9 wks 4 days Gestation: Single. Gestational sac size: 38.5 x 17.0 x 49.5 mm = 35.0 mm AVw 5d. [place] Rump Length: 27.6 mm = 9w 4d [...] Vazquez MD> 08/23/20 1155 Dictation Date/Time: 08/18/20 2719 Transcribed Date/Time: 08/22/20 1047 Product Design Engineer: [email or web address] Name Value Range Interpretation Code Description Data Amy rce(s) Supporting Document(s) ID Date Data Source [id number] 09/12/2020 05:08:00 PM [facility] CHLAMYDIA/GC SOURCE: ENDOCERVICAL Name Value Range Interpretation Code Description Data Amy rce(s) Supporting Document(s) Chlam Amp Probe-Swab Negative Normal (applies to non-num david results) [facility] GC Amp Probe- Swab Negative Normal (applies to non-numer ic results) [facility] Methodology: Second generation nucleic a kathrin amplification. ID Date Data Source [id number] 09/12/2020 12:05:00 PM [facility] Name Value Range Interpretation Code Description Data Amy rce(s) Supporting Document(s) Procedure Social History Code Duration Value Status Description Data Source(s ) Smoking 04/12/2021 12:00:00 AM EDT Current Smoker completed Curre nt Smoker eCW1 ([facility]) Smoking 02/24/2021 12:00:00 AM EDT Current Smoker completed Curre nt Smoker eCW1 ([facility]) Smoking 02/24/2021 12:00:00 AM EDT Current Smoker completed Curre nt Smoker eCW1 ([facility]) Smoking 02/20/2021 12:00:00 AM EDT Current Smoker completed Curre nt Smoker eCW1 ([facility]) Smoking 02/20/2021 12:00:00 AM EDT Current Smoker completed Curre nt Smoker eCW1 ([facility]) Smoking 02/16/2021 12:00:00 AM EDT Current Smoker completed Curre nt Smoker eCW1 ([facility]) Smoking 01/13/2021 12:00:00 AM EDT Current Smoker completed Curre nt Smoker eCW1 ([facility]) Smoking 12/16/2020 12:00:00 AM EDT Current Smoker completed Curre nt Smoker eCW1 ([facility]) Smoking 11/17/2020 12:00:00 AM EST Current Smoker completed Curre nt Smoker eCW1 ([facility]) Vital Signs ID Date Data Source UNK Name Value Range Interpretation Code Description Data Source(s) Body weight 199.2 [lb_av] 199.2 [lb_av] [facility] Body mass index (BMI) [Ratio] 35 kg/m2 35 kg/ m2 eCW1 ([facility]) Systolic blood pressure 116 mm[Hg] 116 mm[Hg] e CW1 ([facility]) Diastolic blood pressure 70 mm[Hg] 70 mm[Hg] eCW1 ([facility]) Body height 63.25 [in_i] 63.25 [in_i] eCW1 ([facility]) Body weight 212 [lb_av] 212 [lb_av] eCW1 ([facility]) Body weight 96.16 kg 96.16 kg eCW1 ([facility]) Body height 63.25 [in_i] 63.25 [in_i] eCW1 ([facility]) Body mass index (BMI) [Ratio] 37.258 kg/m2 37.2 58 kg/m2 eCW1 ([facility]) Systolic blood pressure 118 mm[Hg] 118 mm[Hg] e CW1 ([facility]) Diastolic blood pressure 64 mm[Hg] 64 mm[Hg] eCW1 ([facility]) Body weight 213.8 [lb_av] 213.8 [lb_av] eCW[facility] Body weight 96.98 kg 96.98 kg eCW1 ([facility] Body height 63.25 [in_i] 63.25 [in_i] eCW1 ([facility]) Body mass index (BMI) [Ratio] 37.574 kg/m2 37.5 74 kg/m2 eCW1 ([facility]) Systolic blood pressure 114 mm[Hg] 114 mm[Hg] e CW1 ([facility]) Diastolic blood pressure 70 mm[Hg] 70 mm[Hg] eCW1 ([facility]) Body weight 210.9 [lb_av] 210.9 [lb_av] eCW1 [facility] Body height 63.25 [in_i] 63.25 [in_i] eCW1 ([facility]) Body mass index (BMI) [Ratio] 37.065 kg/m2 37.0 65 kg/m2 eCW1 ([facility]) Systolic blood pressure 114 mm[Hg] 114 mm[Hg] e CW1 ([facility]) Diastolic blood pressure 78 mm[Hg] 78 mm[Hg] eCW1 ([facility]) Body height 63.25 [in_i] 63.25 [in_i] eCW1 ([facility]) Body weight 95.62 kg 95.62 kg eCW1 ([facility] Body mass index (BMI) [Ratio] 37.047 kg/m2 37.0 47 kg/m2 eCW1 ([facility]) Systolic blood pressure 110 mm[Hg] 110 mm[Hg] e CW1 ([facility]) Diastolic blood pressure 78 mm[Hg] 78 mm[Hg] eCW1 ([facility]) Body weight 210.8 [lb_av] 210.8 [lb_av] eCW1 [facility] Body weight 206 [lb_av] 206 [lb_av] eCW1 ([facility]) Body height 63.25 [in_i] 63.25 [in_i] eCW1 ([facility]) Body mass index (BMI) [Ratio] 36.203 kg/m2 36.2 03 kg/m2 eCW1 ([facility]) Systolic blood pressure 112 mm[Hg] 112 mm[Hg] e CW1 ([facility]) Diastolic blood pressure 68 mm[Hg] 68 mm[Hg] eCW1 ([facility]) Body weight 195 [lb_av] 195 [lb_av] eCW1 ([facility]) Body height 63.25 [in_i] 63.25 [in_i] eCW1 ([facility]) Body mass index (BMI) [Ratio] 34.27 kg/m2 34.27 kg/m2 eCW1 ([facility]) Systolic blood pressure 102 mm[Hg] 102 mm[Hg] e CW1 ([facility]) Diastolic blood pressure 66 mm[Hg] 66 mm[Hg] eCW1 ([facility]) Body weight 191 [lb_av] 191 [lb_av] eCW1 ([facility]) Body height 63.25 [in_i] 63.25 [in_i] eCW1 ([facility]) Body mass index (BMI) [Ratio] 33.567 kg/m2 33.5 67 kg/m2 eCW1 ([facility]) Systolic blood pressure 104 mm[Hg] 104 mm[Hg] e CW1 ([facility]) Diastolic blood pressure 68 mm[Hg] 68 mm[Hg] eCW1 ([facility]) Patient Treatment Plan of Care Planned Activity Planned Date Details Description Data Source (s) Sertraline 50 MG Oral Tablet 04/12/2021 12:00:00 AM EDT eCW1 ([facility]) Famotidine 40 MG Oral Tablet [Pepcid] 02/20/2021 12:00:00 AM EDT eCW1 ([facility]) Famotidine 40 MG Oral Tablet [Pepcid] 02/20/2021 12:00:00 AM EDT eCW1 ([facility])
[2021-09-11] MEDS ORDERED: ISOVUE-370 76% 100ML VIAL As Ordered ONE (19:42)
[2021-09-11 20:04] LABS: RSV AMPLIFICATION NEGATIVE (NEGATIVE)
--- NOTE | 2021-09-11 22:08 | REPVR ---
PROCEDURE INFORMATION: Exam: CT Abdomen And Pelvis With Contrast Exam date and time: 09/11/2021 8:01 PM Age: 21 years old Clinical indication: Abdominal pain; Generalized; Additional info: Flank pain TECHNIQUE: Imaging protocol: Computed tomography of the abdomen and pelvis with contrast. Axial, coronal and sagittal reformatted images were created and reviewed. Radiation optimization: All CT scans at this facility use at least one of these dose optimization techniques: automated exposure control; mA and/or kV adjustment per patient size (includes targeted exams where dose is matched to clinical indication); or iterative reconstruction. Contrast material: ISOVUE 370; Contrast volume: 100 ml; Contrast route: INTRAVENOUS (IV); COMPARISON: OBS COMPLETE US 11/23/2020 2:14 PM FINDINGS: Liver: Unremarkable. Gallbladder and bile ducts: Status post cholecystectomy. No biliary ductal dilatation. Pancreas: Unremarkable. Spleen: Unremarkable. Adrenal glands: Normal. No mass. Kidneys and ureters: Questionable subtle left renal cortical mottling. Left urothelial thickening and enhancement with associated periureteral/perinephric edema. No radiodense calculi. No hydronephrosis. Stomach and bowel: No bowel wall thickening. No obstruction. No pneumatosis. Appendix: Normal. Intraperitoneal space: No free fluid. No organized fluid collection. No free air. Vasculature: Unremarkable. No aneurysm. Lymph nodes: Small mesenteric lymph nodes, nonspecific in appearance. No pathologically enlarged lymph nodes. Urinary bladder: Mild circumferential urinary bladder wall thickening, possibly secondary to underdistention. Reproductive: Unremarkable. Bones/joints: No acute osseous abnormality. Soft tissues: Unremarkable. IMPRESSION: 1. Findings compatible with ascending left-sided urinary tract infection and probable developing pyelonephritis, as described above. 2. Additional findings, as above. Electronically signed by: Brandin Paz On 09/11/2021 22:06:56 PM
[2021-09-11] MEDS ORDERED: PYRI1TAB5 PO (22:13)
[2021-09-11] MEDS ORDERED: CIPR-249 PO (22:13)
[2021-09-11] MEDS ORDERED: ONDA4TAB6 PO (22:13)
[2021-09-11 22:30] VITALS: BP 125/68
== END 2021-09-11 22:35 | disposition home or self-care (01) ==
LOC: M ED 14:34
DX: N10 Acute pyelonephritis (principal); F17.200 Nicotine dependence, unspecified, uncomplicated
CPT/HCPCS: 74177; 80048; 81001; 83605; 84703; 85027; 87040; 87088; 87186; 87631; 96365; 96366; 96375; 99284; J0696; J1885; J2405; Q9967

== ENCOUNTER 2022-06-21 11:14 | Outpatient (RCR) | payer OTHER ==
[~2022-06-21 11:14] MED LIST changes: +CIPR-249 PO; +LEVO1TAB38 PO; -LEVO250T12 PO; +ONDA4TAB6 PO; +PYRI1TAB5 PO
== END 2022-06-29 ==
LOC: M PT 11:14
PROVIDERS: ATTEND Physician Assistant
DX: M25.561 Pain in right knee (principal)

== ENCOUNTER 2022-07-03 12:21 | Outpatient (RCR) | payer OTHER | END 2022-07-30 | LOC: M PT 12:21 | PROVIDERS: ATTEND Physician Assistant | DX: M25.561 Pain in right knee (principal) ==

== ENCOUNTER → 2024-02-25 | Outpatient (REF) | payer OTHER ==
[2024-02-25 21:20] LABS: APPEARANCE, URINE CLOUDY (CLEAR); BACTERIA, URINE AUTO NEGATIVE (NEGATIVE); BILIRUBIN, URINE AUTO NEGATIVE (NEGATIVE); BLOOD, URINE BLOOD NEGATIVE (NEGATIVE); CALCIUM OXALATE CRYSTALS MODERATE; COLOR, URINE YELLOW (YELLOW); GLUCOSE, URINE (UA) AUTO NEGATIVE (NEGATIVE); KETONE, URINE AUTO NEGATIVE (NEGATIVE); LEUKOCYTE ESTERASE, URINE AUTO 3+ (NEGATIVE); MUCUS, URINE SMALL (NEGATIVE); NITRITE, URINE AUTO NEGATIVE (NEGATIVE); PROTEIN, URINE AUTO 1+ mg/dL (NEGATIVE); RBC, URINE AUTO 19 /HPF (0-3); SPECIFIC GRAVITY URINE AUTO 1.025 (1.002-1.035); SQUAMOUS EPITHELIAL CELL UR AU 0 /HPF (0-6); UROBILINOGEN, URINE AUTO 0.2 mg/dL (0.0-2.0); WBC, URINE AUTO TNTC /HPF (0-3)
== END ==
LOC: M LAB REF 21:02
PROVIDERS: ATTEND Physician Assistant
DX: N39.0 Urinary tract infection, site not specified (principal)

== ENCOUNTER 2024-03-22 12:55 | Emergency (ER) | payer OTHER ==
[~2024-03-22] VITALS: Ht 160 cm; Wt 85.5 kg
[~2024-03-22 12:55] MED LIST changes: +ONDA-282 PO; -ONDA4TAB6 PO
[2024-03-22] MEDS ORDERED: IBUP200T46 PO (13:02)
[2024-03-22] MEDS ORDERED: AMOX875T2 PO (15:28)
[2024-03-22] MEDS: AUGMENTIN 875 MG TAB PO ONE (15:35)
[2024-03-22 15:41] VITALS: BP 119/75; TEMP 97.5; O2SAT 100
== END 2024-03-22 15:41 | disposition home or self-care (01) ==
LOC: M ED 12:55
DX: K02.9 Dental caries, unspecified (principal); F32.A Depression, unspecified; F41.9 Anxiety disorder, unspecified; Z79.2 Long term (current) use of antibiotics; Z79.1 Long term (current) use of non-steroidal anti-inflammatories (NSAID)

== ENCOUNTER 2025-02-09 12:35 | Emergency (ER) | payer OTHER, SELFPAY ==
[~2025-02-09] VITALS: Ht 160 cm; Wt 92.6 kg
[~2025-02-09 12:35] MED LIST changes: +AMOX875T2 PO; +IBUP200T46 PO
[2025-02-09] MEDS: FLUORESCEIN OPHTH 1MG STRIP OS ONE (15:01)
[2025-02-09] MEDS: PROPARACAINE 0.5% OPHTH SOL 15ML OS ONE (15:01)
[2025-02-09 15:05] VITALS: BP 103/61; TEMP 98; O2SAT 100
[2025-02-09] MEDS ORDERED: ERYT5OIN25 OP (15:19)
[2025-02-09] MEDS: ERYTHROMYCIN OPHTH OINT OS ONE (15:20)
== END 2025-02-09 15:39 | disposition home or self-care (01) ==
LOC: M ED 12:35
DX: S05.02XA Injury of conjunctiva and corneal abrasion without foreign body, left eye, initial encounter (principal); Y04.8XXA Assault by other bodily force, initial encounter; F41.9 Anxiety disorder, unspecified; F32.A Depression, unspecified; J45.909 Unspecified asthma, uncomplicated; Z79.2 Long term (current) use of antibiotics; Z79.1 Long term (current) use of non-steroidal anti-inflammatories (NSAID); Y92.009 Unspecified place in unspecified non-institutional (private) residence as the place of occurrence of the external cause; Y93.89 Activity, other specified; Y99.9 Unspecified external cause status

== ENCOUNTER → 2025-07-03 | Outpatient (REF) | payer OTHER ==
[~2025-07-03] MED LIST changes: +ERYT5OIN25 OP; -IBUP-1022 PO; +IBUP600T42 PO; +MEDR4PAK PO; +METH-1165 PO
[2025-07-03 19:02] LABS: APPEARANCE, URINE CLOUDY (CLEAR); BACTERIA, URINE AUTO 1+ (NEGATIVE); BILIRUBIN, URINE AUTO NEGATIVE (NEGATIVE); BLOOD, URINE BLOOD 1+ (NEGATIVE); GLUCOSE, URINE (UA) AUTO NEGATIVE (NEGATIVE); KETONE, URINE AUTO NEGATIVE (NEGATIVE); LEUKOCYTE ESTERASE, URINE AUTO 2+ (NEGATIVE); MUCUS, URINE SMALL (NEGATIVE); NITRITE, URINE AUTO NEGATIVE (NEGATIVE); PROTEIN, URINE AUTO 1+ mg/dL (NEGATIVE); RBC, URINE AUTO 11 /HPF (0-3); SPECIFIC GRAVITY URINE AUTO 1.013 (1.002-1.035); SQUAMOUS EPITHELIAL CELL UR AU 6 /HPF (0-6); TRANSITIONAL EPITHELIAL AUTO <1 /HPF; UROBILINOGEN, URINE AUTO 0.2 mg/dL (0.0-2.0); WBC, URINE AUTO 58 /HPF (0-3); YEAST LIKE CELL URINE AUTO SMALL
== END ==
LOC: M LAB REF 17:00
DX: N39.0 Urinary tract infection, site not specified (principal)

== ENCOUNTER 2025-07-05 15:23 | Emergency (ER) | payer OTHER ==
[~2025-07-05] VITALS: Ht 161.9 cm; Wt 94.8 kg
[~2025-07-05 15:23] MED LIST changes: -MEDR4PAK PO; -METH-1165 PO
[2025-07-05] MEDS: ACETAMINOPHEN 500 MG TAB PO ONE (22:47)
[2025-07-05] MEDS: LIDOCAINE 5% PATCH TD ONE (22:47)
[2025-07-05] MEDS: KETOROLAC 30 MG/ML 1 ML VIAL IM ONE (22:48)
[2025-07-05] MEDS ORDERED: METH-1165 PO (23:39)
[2025-07-05] MEDS ORDERED: MEDR4PAK PO (23:39)
[2025-07-05 23:50] VITALS: BP 118/65; TEMP 98.7; O2SAT 100
== END 2025-07-05 23:53 | disposition home or self-care (01) ==
LOC: M ED 15:23
DX: M54.50 Low back pain, unspecified (principal); J45.909 Unspecified asthma, uncomplicated; Z79.2 Long term (current) use of antibiotics; Z79.1 Long term (current) use of non-steroidal anti-inflammatories (NSAID); Z79.899 Other long term (current) drug therapy
CPT/HCPCS: 72110; 96372; 99284; J1885